=== PATIENT | male | born 1950 | race Caucasian/White ===

== ENCOUNTER 2017-02-26 05:56 | Emergency (ER) | payer MEDICARE, OTHER ==
[~2017-02-26] VITALS: Ht 182.9 cm; Wt 112.1 kg
[~2017-02-26 05:56] MED LIST: ACYC-114 PO; AMMO225L5 TP; ASPI-496 PO; CELE200C PO; CLOT30CR17 TP; DIPH25CA61 PO; HYDR-3240 PO; HYDR-3307 PO; HYDR25SU3 RC; MAGN400T7 PO; MICO29.5 TP; PANT40TA5 PO; PHEN1SUP15 RC; PRED20TA PO; PSYL0.5215 PO; SAW450CA2 PO; SERT50TA5 PO; SIMV10TA3 PO; TAMS0.4C2 PO; TERA10CA3 PO; TRIA15CR53 TP; VITA400C40 PO; [UNRECOGNIZED DRUG - OTHER] PO
[2017-02-26] MEDS ORDERED: CYAN50003 PO (06:40)
[2017-02-26] MEDS ORDERED: FINA5TAB4 PO (06:40)
[2017-02-26] MEDS ORDERED: DOCU250C2 PO (06:40)
[2017-02-26] MEDS ORDERED: PANT40TA3 PO (06:40)
[2017-02-26] MEDS ORDERED: CELE200C PO (06:40)
[2017-02-26] MEDS ORDERED: UBID100C11 PO (06:40)
[2017-02-26] MEDS ORDERED: TURM1CAP PO (06:40)
[2017-02-26] MEDS ORDERED: MELA5TAB3 PO (06:40)
[2017-02-26] MEDS ORDERED: [UNRECOGNIZED DRUG - OTHER] (06:40)
[2017-02-26] MEDS ORDERED: FLUT1DIS IH (06:40)
[2017-02-26] MEDS ORDERED: CHOL100018 PO (06:40)
[2017-02-26] MEDS ORDERED: PSYL3.4P8 PO (06:40)
[2017-02-26] MEDS ORDERED: ALPH300C PO (06:40)
[2017-02-26] MEDS ORDERED: DICLOFENAC TOP (06:40)
[2017-02-26] MEDS ORDERED: SERT50TA5 PO (06:40)
[2017-02-26] MEDS ORDERED: MAGN400T7 PO (06:40)
[2017-02-26] MEDS ORDERED: [UNRECOGNIZED DRUG - OTHER] (06:40)
[2017-02-26] MEDS ORDERED: ASPI-515 PO (06:40)
[2017-02-26 08:17] VITALS: BP 143/92
== END 2017-02-26 08:20 | disposition home or self-care (01) ==
LOC: ED 08:10
DX: M25.511 Pain in right shoulder (principal); M25.512 Pain in left shoulder; M54.12 Radiculopathy, cervical region; M79.622 Pain in left upper arm; M79.621 Pain in right upper arm; M79.632 Pain in left forearm; M79.631 Pain in right forearm; K21.9 Gastro-esophageal reflux disease without esophagitis
CPT/HCPCS: 36415; 72125; 84484; 93005; 99285

== ENCOUNTER → 2017-03-17 | Outpatient (CLI) | payer MEDICARE, OTHER ==
[~2017-03-17] MED LIST changes: +ALPH300C PO; +AMMO240L2 TD; +ASPI-515 PO; +CHOL100018 PO; +CYAN50003 PO; +DICLOFENAC TOP TD; +DOCU250C2 PO; +FINA5TAB4 PO; +FLUT15.88 NS; +FLUT1DIS IH; +HYDR28.423 TD; +HYDR30SU4 PR; +MELA5TAB3 PO; +PANT40TA3 PO; +PSYL3.4P8 PO; +TURM1CAP PO; +UBID100C11 PO; +[UNRECOGNIZED DRUG - OTHER] PO; +[UNRECOGNIZED DRUG - OTHER] TD
[2017-03-17 12:13] LABS: ASPARTATE AMINO TRANSFERASE 16 U/L (15-37); BLOOD UREA NITROGEN 19 mg/dL (7-18)
[2017-03-17 12:16] LABS: PATH.CAST-FLAG NOT PRESENT; SPERM-FLAG NOT PRESENT; SRC-FLAG NOT PRESENT; XTAL-FLAG NOT PRESENT; YLC-FLAG NOT PRESENT
== END | disposition home or self-care (01) ==
LOC: STAR 10:47
PROVIDERS: ATTEND Orthopaedic Surgery Orthopaedic Surgery of the Spine
DX: Z01.811 Encounter for preprocedural respiratory examination (principal); M48.02 Spinal stenosis, cervical region; M54.12 Radiculopathy, cervical region; M50.30 Other cervical disc degeneration, unspecified cervical region; Z87.891 Personal history of nicotine dependence; Z85.828 Personal history of other malignant neoplasm of skin
CPT/HCPCS: 36415; 71020; 80053; 81001; 85025

== ENCOUNTER 2017-03-21 09:56 | Inpatient (IN) | payer MEDICARE, OTHER ==
[~2017-03-21] VITALS: Ht 182.9 cm; Wt 110.7 kg
[2017-03-21] MEDS ORDERED: LACTATED RINGERS 1,000 ML IV SCH (13:28)
[2017-03-21 13:51] VITALS: BP 149/74
[2017-03-21] MEDS ORDERED: BACITRACIN 50,000 UNIT ONE (14:15)
[2017-03-21] MEDS ORDERED: THROMBIN 5,000 UNIT VIAL TP ONE ×2 (14:15→16:32)
[2017-03-21] MEDS ORDERED: BUPIVACAINE/PF-EPI 0.5% 1:200K ONE (14:15)
[2017-03-21] MEDS ORDERED: AMMONIUM LACTATE TD PRN (14:30)
[2017-03-21] MEDS ORDERED: TRIAMCINOLONE CRM 0.5%, 15GM TP PRN (14:30)
[2017-03-21] MEDS ORDERED: PHARMACY MAY ADJ FOR RENAL FX MC PRN (14:30)
[2017-03-21] MEDS ORDERED: DICLOFENAC HOMETD PRN (14:30)
[2017-03-21] MEDS ORDERED: OXYcodone/APAP 5/325MG TABLET PO PRN (14:30)
[2017-03-21] MEDS ORDERED: CLOTRIMAZOLE CRM 1%, 15GM TP PRN (14:30)
[2017-03-21] MEDS ORDERED: DIPHENHYDRAMINE 50 MG/ML, 1ML IVPush PRN (14:30)
[2017-03-21] MEDS: D5%-0.9% NACL+KCL 20MEQ 1,000 ML IV SCH (14:30)
[2017-03-21] MEDS ORDERED: BISACODYL 10 MG SUPP PR PRN (14:30)
[2017-03-21] MEDS ORDERED: SENNA/DOCUSATE TABLET PO PRN (14:30)
[2017-03-21] MEDS ORDERED: MAGNESIUM HYDROXIDE 8%, 30ML UDC PO PRN (14:30)
[2017-03-21] MEDS ORDERED: PHENYLEPHRINE HCL RC PRN (14:30)
[2017-03-21] MEDS ORDERED: HYDROCORTISONE 25 MG SUPP PR PRN (14:30)
[2017-03-21] MEDS ORDERED: FENTANYL PF 250 MCG/5ML ONE (14:40)
[2017-03-21] MEDS ORDERED: MIDAZOLAM 1 MG/ML, 2ML ONE (14:40)
[2017-03-21] MEDS ORDERED: PROPOFOL 10 MG/ML, 20ML ONE (16:06)
[2017-03-21] MEDS ORDERED: SUCCINYLCHOLINE 20 MG/ML, 10ML ONE (16:06)
[2017-03-21] MEDS ORDERED: CEFAZOLIN 1,000 MG ONE (16:06)
[2017-03-21] MEDS ORDERED: hydrALAzine 20 MG/ML, 1ML ONE ×2 (16:06→19:04)
[2017-03-21] MEDS ORDERED: ONDANSETRON 2MG/ML, 2ML ONE (16:06)
[2017-03-21] MEDS ORDERED: DEXAMETHASONE 4 MG/ML, 5ML ONE (16:06)
[2017-03-21] MEDS ORDERED: ROCURONIUM 10 MG/ML ONE (16:06)
[2017-03-21] MEDS ORDERED: HYDROmorphone 2 MG/ML, 1ML ONE ×2 (16:22→18:23)
[2017-03-21] MEDS ORDERED: BUPIVACAINE/PF-EPI 0.5% 1:200K INFIL ONE (16:32)
[2017-03-21] MEDS ORDERED: BACITRACIN 50,000 UNIT IRRIG ONE (16:32)
[2017-03-21] MEDS ORDERED: OXYcodone 5 MG/5 ML ORAL.SOL UDC ONE (18:23)
[2017-03-21] MEDS ORDERED: FENTANYL PF 100 MCG/2ML ONE (18:23)
[2017-03-21] MEDS: FENTANYL PF 100 MCG/2ML IV PRN ×2 (18:25→18:36)
[2017-03-21] MEDS ORDERED: hydrALAzine 20 MG/ML, 1ML IV PRN (18:30)
[2017-03-21] MEDS ORDERED: OXYcodone 5 MG/5 ML ORAL.SOL UDC PO PRN (18:30)
[2017-03-21] MEDS ORDERED: ONDANSETRON 2MG/ML, 2ML IVPush PRN (18:30)
[2017-03-21] MEDS ORDERED: LABETALOL 5MG/ML, 20ML IV PRN (18:30)
[2017-03-21] MEDS ORDERED: METOCLOPRAMIDE 5 MG/ML, 2ML IV PRN (18:30)
[2017-03-21] MEDS ORDERED: ACETAMINOPHEN 325 MG TABLET PO PRN (18:30)
[2017-03-21] MEDS: HYDROmorphone 1 MG/ML, 1ML IV PRN ×4 (18:50→19:24)
[2017-03-21] MEDS ORDERED: HEMORRHOIDAL SUPP.RECT PR PRN (21:00)
[2017-03-21] MEDS ORDERED: FLUTICASONE NASAL SPRAY 16GM NAS SCH (21:00)
[2017-03-21] MEDS ORDERED: TAMSULOSIN 0.4 MG CAP.ER.24H PO SCH (21:00)
[2017-03-21] MEDS ORDERED: MELATONIN 5 MG TABLET PO SCH (21:00)
[2017-03-21] MEDS ORDERED: HYDROCORTISONE CRM 1%, 30GM TP PRN (21:00)
[2017-03-21] MEDS ORDERED: SIMVASTATIN 10 MG TABLET PO SCH (21:00)
[2017-03-21] MEDS ORDERED: MICONAZOLE CRM 2%, 15GM TP PRN (21:00)
[2017-03-21] MEDS: FLUTICASONE NASAL SPRAY 16GM NAS SCH (21:11)
[2017-03-21] MEDS: METHOCARBAMOL 750 MG TABLET PO PRN (22:17)
[2017-03-21] MEDS: ONDANSETRON 2MG/ML, 2ML IVPush PRN (23:17)
[2017-03-21 23:52] VITALS: BP 147/86
[2017-03-21] MEDS: morphine SULFATE 10 MG/ML, 1ML IVPush PRN (23:53)
[2017-03-22] MEDS: morphine SULFATE 10 MG/ML, 1ML IVPush PRN ×2 (00:58→08:09)
[2017-03-22] MEDS ORDERED: DIAZEPAM 5 MG TABLET PO ONE (03:30)
[2017-03-22 03:51] VITALS: BP 124/81
[2017-03-22] MEDS: D5%-0.9% NACL+KCL 20MEQ 1,000 ML IV SCH (03:55)
[2017-03-22 06:40] VITALS: BP 118/71
[2017-03-22] MEDS: ONDANSETRON 2MG/ML, 2ML IVPush PRN (08:17)
[2017-03-22] MEDS ORDERED: MAGNESIUM OXIDE 400 MG TABLET PO SCH (09:00)
[2017-03-22] MEDS ORDERED: TEMPLATE NON-FORMULARY MED. (Alpha Lipoic Acid** 600 MG) PO SCH (09:00)
[2017-03-22] MEDS ORDERED: CYANOCOBALAMIN 1,000 MCG TABLET PO SCH (09:00)
[2017-03-22] MEDS ORDERED: TEMPLATE NON-FORMULARY MED. (Ubidecarenone** (Co Q-10**) 300 MG) PO SCH (09:00)
[2017-03-22] MEDS ORDERED: DOCUSATE CALCIUM 240 MG CAPSULE PO SCH (09:00)
[2017-03-22] MEDS ORDERED: PSYLLIUM PACKET PO SCH (09:00)
[2017-03-22] MEDS ORDERED: FINASTERIDE 5 MG TABLET PO SCH (09:00)
[2017-03-22] MEDS ORDERED: CHOLECALCIFEROL 1,000 UNIT TABLET PO SCH (09:00)
[2017-03-22] MEDS ORDERED: PANTOPROZOLE 40MG TABLET PO SCH (09:00)
[2017-03-22] MEDS ORDERED: SERTRALINE 50MG TABLET PO SCH (09:00)
[2017-03-22] MEDS: FLUTICASONE NASAL SPRAY 16GM NAS SCH (09:33)
[2017-03-22] MEDS: HYDROcodone/APAP 10/325 MG TABLET PO PRN ×2 (09:37→13:19)
[2017-03-22] MEDS: METHOCARBAMOL 750 MG TABLET PO PRN (09:37)
[2017-03-22 13:22] VITALS: BP 123/72
== END 2017-03-22 13:50 | disposition home or self-care (01) | DRG 473 ==
LOC: ORIP 12:56 → 4NOR 20:10 → DCLOUNGE 03-22 13:37
PROVIDERS: ADMIT Orthopaedic Surgery Orthopaedic Surgery of the Spine; ATTEND Orthopaedic Surgery Orthopaedic Surgery of the Spine
PROC: 0RB30ZZ Excision of Cervical Vertebral Disc, Open Approach (ICD-10-PCS; 2017-03-21)
PROC: 0RG20A0 Fusion of 2 or more Cervical Vertebral Joints with Interbody Fusion Device, Anterior Approach, Anterior Column, Open Approach (ICD-10-PCS; principal; 2017-03-21 15:30)
DX: M48.02 Spinal stenosis, cervical region (principal); E66.01 Morbid (severe) obesity due to excess calories; M50.321 Other cervical disc degeneration at C4-C5 level; M50.322 Other cervical disc degeneration at C5-C6 level; M50.323 Other cervical disc degeneration at C6-C7 level; N40.0 Benign prostatic hyperplasia without lower urinary tract symptoms; Z68.33 Body mass index [BMI] 33.0-33.9, adult; Z88.8 Allergy status to other drugs, medicaments and biological substances
CPT/HCPCS: 36415; 72040; 85025; J0690; J1100; J1170; J2250; J2405; J2704; J3010; J0330; J0360; J2270; J3480; J7120

== ENCOUNTER → 2017-10-17 | Outpatient (CLI) | payer MEDICARE, OTHER ==
[~2017-10-17] MED LIST changes: +CHOL100012 PO; -CHOL100018 PO; -DOCU250C2 PO; +DOCU250C9 PO; +MELA1TAB8 PO; +MELA5TAB21 PO; -MELA5TAB3 PO; +PHEN1SUP RC; -PHEN1SUP15 RC; +SIMV20TA3 PO; -UBID100C11 PO; +UBID100C41 PO; -VITA400C40 PO; +VITA400C43 PO
[2017-10-17 14:02] LABS: HIV 1&2 ANTIBODY SCREEN Nonreactive (Nonreactive); HIV-1 p24 ANTIGEN Nonreactive (Nonreactive)
== END | disposition home or self-care (01) ==
LOC: STAR 11:56
PROVIDERS: ATTEND Orthopaedic Surgery
DX: Z01.818 Encounter for other preprocedural examination (principal); M17.11 Unilateral primary osteoarthritis, right knee
CPT/HCPCS: 36415; 86703; 87081; 87899; G0435

== ENCOUNTER 2017-10-23 07:47 | Inpatient (IN) | payer MEDICARE, OTHER ==
[~2017-10-23] VITALS: Ht 182.9 cm; Wt 100.8 kg
[~2017-10-23 07:47] MED LIST changes: +BACITRACIN 50,000 UNIT ONE; +EPINEPHRINE 1 MG/ML, 1ML ONE; +KETOROLAC 60 MG/2 ML ONE; +ROPIvacaine/PF 0.2%, 20 ML ONE; +TRANEXAMIC ACID 100 MG/ML, 10ML ONE; +morphine SULFATE/PF 1 MG/ML, 10ML ONE
[2017-10-23] MEDS ORDERED: LACTATED RINGERS 1,000 ML IV SCH (08:18)
[2017-10-23] MEDS ORDERED: ACETAMINOPHEN 500 MG TABLET PO STA ×2 (08:18→09:25)
[2017-10-23] MEDS ORDERED: GABAPENTIN 300 MG CAPSULE PO STA ×2 (08:18→09:25)
[2017-10-23 08:30] VITALS: BP 136/74
[2017-10-23] MEDS ORDERED: ACETAMINOPHEN 500 MG TABLET ONE (08:37)
[2017-10-23] MEDS ORDERED: FENTANYL PF 100 MCG/2ML ONE ×2 (08:47→10:54)
[2017-10-23] MEDS ORDERED: MIDAZOLAM 1 MG/ML, 2ML ONE (08:47)
[2017-10-23] MEDS ORDERED: KETAMINE 10 MG/ML, 20ML ONE (08:47)
[2017-10-23] MEDS ORDERED: VANCOMYCIN PMX 1GM/200ML 200 ML IV ONE (08:49)
[2017-10-23] MEDS ORDERED: DEXAMETHASONE 4 MG/ML, 1ML ONE (10:10)
[2017-10-23] MEDS ORDERED: GLYCOPYRROLATE 0.4 MG/2 ML, 2ML ONE (10:10)
[2017-10-23] MEDS ORDERED: ROCURONIUM 10 MG/ML,10ML ONE (10:10)
[2017-10-23] MEDS ORDERED: CEFAZOLIN 1,000 MG ONE (10:10)
[2017-10-23] MEDS ORDERED: ONDANSETRON 2MG/ML, 2ML ONE (10:10)
[2017-10-23] MEDS ORDERED: SUCCINYLCHOLINE 20 MG/ML, 10ML ONE (10:10)
[2017-10-23] MEDS ORDERED: LORazepam 2 MG/ML, 1ML IVPush PRN (10:30)
[2017-10-23] MEDS ORDERED: morphine SULFATE 10 MG/ML, 1ML IVPush PRN (10:30)
[2017-10-23] MEDS ORDERED: ACETAMINOPHEN 325 MG TABLET PO PRN (10:30)
[2017-10-23] MEDS ORDERED: ZOLPIDEM 5MG TABLET PO PRN (10:30)
[2017-10-23] MEDS ORDERED: TRANEXAMIC ACID 1,000 MG in SODIUM CHLORIDE 0.9% 100 ML IV ONE ×2 (10:30→16:00)
[2017-10-23] MEDS ORDERED: ONDANSETRON 2MG/ML, 2ML IVPush PRN (10:30)
[2017-10-23] MEDS ORDERED: VANCOMYCIN PMX 1GM/200ML 200 ML IVPB ONE (10:30)
[2017-10-23] MEDS: CEFAZOLIN PMX 1GM/50ML 50 ML IVPB SCH ×2 (10:30→18:13)
[2017-10-23] MEDS ORDERED: OXYcodone/APAP 7.5/325MG TABLET PO PRN (10:30)
[2017-10-23] MEDS ORDERED: DEXMEDETOMIDINE 200 MCG/2 ML ONE (10:54)
[2017-10-23] MEDS ORDERED: PROPOFOL 10 MG/ML, 20ML ONE (11:23)
[2017-10-23] MEDS ORDERED: OXYcodone 5 MG/5 ML ORAL.SOL UDC PO PRN (11:30)
[2017-10-23] MEDS ORDERED: FENTANYL PF 100 MCG/2ML IV PRN (11:30)
[2017-10-23] MEDS ORDERED: PROMETHAZINE 25 MG/ML, 1ML IV PRN (11:30)
[2017-10-23] MEDS ORDERED: DIAZEPAM 5 MG/ML, 2ML IVPush PRN (11:30)
[2017-10-23] MEDS ORDERED: MIDAZOLAM 1 MG/ML, 2ML IV PRN (11:30)
[2017-10-23] MEDS ORDERED: ALBUTEROL SULFATE 2.5 MG/3 ML NPPB PRN (11:30)
[2017-10-23] MEDS ORDERED: OXYcodone 5 MG/5 ML ORAL.SOL UDC ONE (12:22)
[2017-10-23] MEDS ORDERED: HYDROmorphone 2 MG/ML, 1ML ONE ×2 (12:22→13:09)
[2017-10-23] MEDS: HYDROmorphone 1 MG/ML, 1ML IV PRN ×6 (12:25→13:26)
[2017-10-23] MEDS: D5%-0.45% NACL 1,000 ML IV SCH ×2 (14:38→21:05)
[2017-10-23 16:44] VITALS: BP 122/74
[2017-10-23 17:55] VITALS: BP 123/71
[2017-10-23 20:03] VITALS: BP 128/73
[2017-10-23] MEDS: DIPHENHYDRAMINE 50 MG CAPSULE PO PRN ×2 (21:11→22:24)
[2017-10-24 00:49] VITALS: BP 104/58
[2017-10-24] MEDS: CEFAZOLIN PMX 1GM/50ML 50 ML IVPB SCH (02:44)
[2017-10-24 03:58] VITALS: BP 105/60
[2017-10-24] MEDS: D5%-0.45% NACL 1,000 ML IV SCH ×3 (04:00→12:33)
[2017-10-24 07:10] VITALS: BP 105/54
[2017-10-24 13:03] VITALS: BP 140/76
[2017-10-24] MEDS ORDERED: ASPIRIN 325 MG TABLET EC PO SCH (17:00)
[2017-10-24] MEDS ORDERED: DOCUSATE 100 MG CAPSULE PO SCH (21:00)
== END 2017-10-24 15:35 | disposition home or self-care (01) | DRG 470 ==
LOC: ORIP 07:47 → 4NOR 13:59 → DCLOUNGE 10-24 15:14
PROVIDERS: ADMIT Orthopaedic Surgery; ATTEND Orthopaedic Surgery
PROC: 0SRC0J9 Replacement of Right Knee Joint with Synthetic Substitute, Cemented, Open Approach (ICD-10-PCS; principal; 2017-10-23 09:30)
DX: M17.11 Unilateral primary osteoarthritis, right knee (principal); Z88.8 Allergy status to other drugs, medicaments and biological substances
CPT/HCPCS: 36415; 85018; C1713; J0171; J0690; J1100; J1170; J1885; J2250; J2274; J2405; J2704; J2795; J3010; J3360; J3370; C1776; J0330; J7120

== ENCOUNTER 2017-10-29 04:34 | Emergency (ER) | payer MEDICARE, OTHER ==
[~2017-10-29] VITALS: Ht 182.9 cm; Wt 100.0 kg
[~2017-10-29 04:34] MED LIST changes: -BACITRACIN 50,000 UNIT ONE; -EPINEPHRINE 1 MG/ML, 1ML ONE; -KETOROLAC 60 MG/2 ML ONE; -PHEN1SUP RC; +PHEN1SUP15 RC; -ROPIvacaine/PF 0.2%, 20 ML ONE; -SAW450CA2 PO; +SAW450CA7 PO; -TRANEXAMIC ACID 100 MG/ML, 10ML ONE; -morphine SULFATE/PF 1 MG/ML, 10ML ONE
[2017-10-29] MEDS ORDERED: SODIUM CHLORIDE FLUSH 10ML SYR IVF ONE (05:30)
[2017-10-29 05:47] LABS: HEMATOCRIT 32.5 % (39.2-51.8); HEMOGLOBIN 10.9 g/dL (13.7-18.0); WHITE BLOOD COUNT 8.1 x10^3/uL (3.4-10)
[2017-10-29 05:58] LABS: ASPARTATE AMINO TRANSFERASE 14 U/L (15-37); BLOOD UREA NITROGEN 15 mg/dL (7-18)
[2017-10-29 06:03] LABS: IS PT STATUS REG ER OR PRE ER? YES
[2017-10-29 07:56] LABS: IS PT STATUS REG ER OR PRE ER? YES
[2017-10-29 09:07] VITALS: BP 134/82
== END 2017-10-29 09:08 | disposition home or self-care (01) ==
LOC: ED 05:22
DX: R42 Dizziness and giddiness (principal); R11.0 Nausea; K21.9 Gastro-esophageal reflux disease without esophagitis
CPT/HCPCS: 36415; 71010; 80053; 84484; 85025; 85610; 85730; 93005; 99285